=== PATIENT | male | born 1940 | race Caucasian/White ===

== ENCOUNTER 2016-12-19 10:53 | Day surgery (SDC) | payer MEDICARE ==
[~2016-12-19] VITALS: Ht 185.4 cm; Wt 88.5 kg
[~2016-12-19 10:53] MED LIST: AMLO10TA3 PO; ASPI-973 PO; ATOR20TA PO; ISOS30TA4 PO; LISI40TA PO; Lactated Ringer's 1,000 ML IV ONE; Lactated Ringer's 1,000 ML IV SCH; MetoCLOpramide 5 mg/mL 2 mL Inj IVPUSH PRN; OMEG500C PO; Ondansetron 2 mg/mL 2 mL Inj IVPUSH PRN; TICA90TA PO
[2016-12-19] MEDS ORDERED: Propofol 10,000 mCg/mL 20 mL Inj ONE (10:54)
[2016-12-19] MEDS ORDERED: FERR159T2 PO (12:01)
[2016-12-19 12:08] VITALS: BP 117/66; PULSE 50; RESP 15; O2SAT 96
--- NOTE | 2016-12-19 12:59 | PCM.HPANE ---
Patient Data Surgeon Admitting Provider: Attending Provider:Junior Daniels MD Primary Care Physician:Eduardo Taveras DO Other Provider:Patricia Vega Anesthesia Reason for Visit Iron Deficiency Anemia Ht/WT & BMI Height (Feet): 6 Height (Inches): 1 Weight (Kilograms): 88.45 Body Mass Index 25.00 Allergies Coded Allergies: No Known Drug Allergies (Verified Allergy, Unknown, 12/17/16) Past Anesthesia History Anesthesia History: Denies:: Anesthesia Reactions, Fam Malignant Hypertherm Diabetes History Hx Diabetes?: No MRSA MRSA: No Medications Blood Thinner: Aspirin Last Dose Blood Thinner: Dec 19, 2016 Home Meds Incl Beta Mal: No Reported Medications Ferrous Sulfate, Dried (Iron)159 Mg Tablet.er159 Mg PO 12/19/16 Lisinopril 40 Mg Xszlgy95 Mg PO DAILY 30 Days Ref 0 12/17/16 Isosorbide MN ER 30 Mg Tab.er.24h30 Mg PO DAILY 12/17/16 Ponder-3 Fatty Acids (Fish Oil)500 Mg Capsule.dr500 Mg PO 12/17/16 Ticagrelor (Brilinta)90 Mg Vgjjla98 Mg PO 12/17/16 Atorvastatin (Lipitor)20 Mg Nqagjo39 Mg PO DAILY Ref 0 12/17/16 Aspirin 81 Mg Jhspeo01 Mg PO DAILY Ref 0 12/17/16 Amlodipine 10 Mg Lvyirl99 Mg PO DAILY Ref 0 12/17/16 Last Time Dose Received off brilinta x 4 dd Took lisinopril History History of ENT Problems?: Yes HEENT History: Positive for:: Hearing Problem Denture Type: Full- Upper Full- Lower Teeth Condition: Missing Teeth Hx of Heart Problems?: Yes Cardiovascular History: Positive for:: Hypertension Other History/Comments one coronary stent 06/21. No recent CP Greater than 4 mets; very active Hx of Respiratory Problem?: No Respiratory History: Denies:: Asthma COPD Chest Surgery Cough Dyspnea Emphysema Hemoptysis Oxygen Administration Pneumonia Pulmonary Embolism Tuberculosis Use of C-PAP Machine Use of Inhalers / NEBS Hx Neurologic Problems?: No Neurological History: Denies:: CVA Hx of GI Problems?: No Hx of Problems?: No Hx Musculoskeletal Problems?: No Hx Surgeries?: Yes (RIHNO SURGERY) Hx Any Other Health Problems?: No Hx Diabetes: No Hx Alcohol Use: Yes (OCCASIONALY) Stop/Bang Treated for Sleep Apnea?: No Do You Have a CPAP Machine?: No S-Snoring: Do You Snore Loudly: Yes T-Tired: feel tired, fatigued: No O-Obsered: Observed not breath: No P-Blood Pressure: treated: Yes B- Body Mass Index > 35 kg/m2: No A- Age over 50: Yes N- Neck Large Circumference: No G- Gender Male: Yes RUBEN Total Score: 4 Risk Assessment Category Category 1A: Patient has history of documented sleep apnea, and HAS NOT received any narcotic, sedative or anesthesia administration during this stay. Category 1B: Patient has history of documented sleep apnea, and HAS received any narcotic , sedative or anesthesia administration during this stay Category 2: Patient has SUSPECTED Obstructive Sleep Apnea, and HAS received any narcotic , sedative or anesthesia administration during this stay. Category 3: Patient has SUSPECTED Obstructive Sleep Apnea and HAS NOT received narcotic, sedative or anesthesia administration during this stay. Category 4: Outpatient in Procedural Areas with known sleep apnea or who screen positive for High Risk via the STOP/BANG questionnaire. Exam Exam Vital Signs Vital Signs Date Time Temp Pulse Resp B/P Pulse Ox O2 Delivery O2 Flow Rate FiO2 12/19/16 12:08 50 15 117/66 96 Room Air General Appearance: Alert, Oriented X3 HEENT/AIRWAY: MP 2, Neck Movement (FROM) Lungs: Clear to Auscultation, Clear to Percussion Heart: Exam Unremarkable, Regular Rate/Rhythm Plan Impression Patient chart reviewed, patient interviewed and anesthestic plan with risks, benefits, and alternatives discussed, and informed consent obtained. ASA Physical Status: ASA2 Mod Systemic Disease Anesthetic Plan: MAC Bene/Risks/Altern/Consents: Yes HP Complete Prior to Induction: Yes Temo Anderson MD Dec 19, 2016 12:59
--- NOTE | 2016-12-19 13:42 | PCM.ANEP1 ---
Post Anesthesia PACU Phase 1 Assessment Vital Signs Vital Signs Date Time Temp Pulse Resp B/P Pulse Ox O2 Delivery O2 Flow Rate FiO2 12/19/16 12:08 50 15 117/66 96 Room Air Anesthetic Administered: MAC Level of Alertness: Awake, talking JESUS's with Equal Strength: Yes Pain: No Nausea or Vomiting: No CV Function & Hydration Stable: Yes Airway Device: Oxygen Delivery: Room Air Lungs: Clear to Auscultation, Clear to Percussion PACU Phase 2 Assessment Complications: No Follow up Care: No Patient Instructions Provided: N/A Comments See anesth record for PACU VS. PACU VSS Temo Anderson MD Dec 19, 2016 13:42
[2016-12-19 13:43] VITALS: BP 105/59; PULSE 52; RESP 12; O2SAT 98
[2016-12-19 14:01] VITALS: BP 107/73; PULSE 57; RESP 14; O2SAT 99
--- NOTE | 2016-12-19 15:03 | ENDO ---
[address] [address] ENDOSCOPY PROCEDURE PATIENT: PERCY GAYLE : 1940 MR#: [id number] ADMIT: 12/19/2016 JOB ID: [id number] DATE: 12/19/2016 PROCEDURE: Esophagogastroduodenoscopy. INDICATION: Iron deficiency anemia. The patient's ASA classification, Mallampati score and medications per Dr. Temo Anderson's anesthesia report. INSTRUMENT USED: GIF H 180 J. PROCEDURE DETAILS: After informed consent was obtained, the patient was brought into the GI suite, where he was placed on oxygen via nasal cannula and monitored with continuous pulse oximeter, telemetry and blood pressure monitoring. A time-out was performed. Then, he was placed in the left lateral decubitus position and medications were administered for sedation. A bite block was placed. The standard EGD scope was inserted through the bite block and advanced under direct visualization to the second portion of the duodenum without difficulty. FINDINGS: 1. Normal appearing duodenal bulb, first and second portion. Multiple random biopsies were obtained. 2. Normal-appearing pylorus, antrum and gastric body. 3. Retroflexed views in the gastric body revealed a small hiatal hernia. At the mouth of the hiatal hernia, there was what appeared to be an ulcer that was clean based and not actively bleeding. The ulcer measured approximately 2-3 mm in size. Mucosa surrounding it was erythematous. Multiple random biopsies were obtained. 4. The GE junction was at approximately 40 cm and appeared regular. 5. Normal appearing esophagus. The hiatal hernia appeared to be a sliding-type hiatal hernia. As the scope was withdrawn back into the esophagus, we did not appreciate the hernia. IMPRESSION: Ulcer in the cardia. I suspect this may be Eliazar erosion. RECOMMENDATIONS: 1. Await biopsy results. PPI daily. 2. Proceed to colonoscopy. COMPLICATIONS: None. ESTIMATED BLOOD LOSS: Less than 5 mL. PROCEDURE PERFORMED: Colonoscopy. INDICATION: Iron deficiency anemia. Please see above for ASA classification, Mallampati score and medications. INSTRUMENT USED: PCF H 180 AL PREPARATION QUALITY: Was good. PROCEDURE DETAILS: After completion of the EGD examination, the patient was turned and a digital rectal examination was performed which was unremarkable. The colonoscope was then inserted into the rectum and advanced under direct visualization to the cecum, which was identified by the presence of the ileocecal valve and appendiceal orifice. Once the cecum was reached, the colonoscope was withdrawn back into the rectum and the mucosa and lumen were examined. In the rectum, retroflexion was performed. Following retroflexion, remaining air in the rectum was suctioned, and the procedure was completed. FINDINGS: 1. In the cecum there was an approximately 5-6 mm sessile polyp that was removed with a cold snare. 2. In the ascending colon, there was an approximately 7 mm sessile polyp that was removed with a hot snare. 3. Just distal to this, there was an approximately 4-5 mm polyp that was removed with a combination of a hot snare and cold biopsy forceps. 4. In the sigmoid colon, there were two diminutive polyps removed with cold biopsy forceps. IMPRESSION: 1. Cecal polyp. 2. Two ascending colon polyps. 3. Two sigmoid polyps. RECOMMENDATIONS: 1. Avoid nonsteroidal anti-inflammatory drugs and anticoagulants for 72 hours. 2. Repeat colonoscopy in three years. 3. Followup in GI clinic. COMPLICATIONS: None. ESTIMATED BLOOD LOSS: Less than 5 mL.
--- NOTE | 2016-12-25 12:31 | PATH ---
SURGICAL PATHOLOGY Attending Physician:Donta Najera CASE STATUS: Signed Out PATIENT NAME: PRECY GAYLE PID: [id number] : 1940 DATE COLLECTED:12/19/2016 00:00 SPECIMEN: 1: Duodenum, Biopsy 2: Gastric, Biopsy 3: Colon, Polyp 4: Colon, Polyp 5: Colon, Polyp CLINICAL HISTORY: 1). DUODENAL BIOPSY 2). CARDIA ULCER BIOPSY (RULE OUT H.PYLORI) 3). CECAL POLYP X1 4). ASCENDING POLYPS X2 5). SIGMOID POLYP X1 FINAL DIAGNOSIS: 1.DUODENAL BIOPSY: - DUODENAL MUCOSA WITH NO DIAGNOSTIC ABNORMALITY. - Negative for active inflammation, features of sprue, dysplasia or malignancy. 2.CARDIA ULCER BIOPSY: - GASTRIC ANTRAL-TYPE MUCOSA WITH MILD CHRONIC AND FOCALLY ACTIVE GASTRITIS. - EDEMA OF LAMINA PROPRIA WITH EXTRAVASATED RED BLOOD CELLS AND REACTIVE CHANGES. - Negative for Helicobacter pylori by immunohistochemistry. - Negative for intestinal metaplasia. - Negative for dysplasia and malignancy. 3.CECAL POLYP, BIOPSY: - TUBULAR ADENOMA IN 2 OF 2 FRAGMENTS. 4.ASCENDING POLYPS, BIOPSY: - TUBULAR ADENOMA IN 6 OF 8 FRAGMENTS - TWO FRAGMENTS OF COLONIC MUCOSA WITH NO DIAGNOSTIC ABNORMALITY, NEGATIVE FOR DYSPLASIA AND MALIGNANCY. 5.SIGMOID POLYP, BIOPSY: - SERRATED POLYP FAVOR HYPERPLASTIC POLYP IN 2 OF 2 FRAGMENTS. ICD10 D12.6 GROSS DESCRIPTION: The specimen is received in five formalin filled containers labeled with the patient's name. 1). The specimen is labeled "duodenum" and consists of multiple portions of tissue which aggregate to 0.3 x 0.3 x 0.2 CM. The specimen is entirely submitted in cassette 1A. 2). The specimen is labeled "cardia" and consists of 2 portions of tissue which aggregate to 0.2 x 0.2 x 0.2 CM. The specimen is entirely submitted in cassette 2A. 3). The specimen is labeled "cecal polyp" and consists of 2 portions of tissue which aggregate to 0.2 x 0.2 x 0.2 CM. The specimen is entirely submitted in cassettes 3A 4). The specimen is labeled "ascending polyps" and consists of multiple portions of tissue which aggregate to 0.5 x 0.5 x 0.4 CM. The specimen is entirely submitted in cassette 4A. 5). The specimen is labeled "sigmoid polyp" and consists of 2 portions of tissue which aggregate to 0.3 x 0.3 x 0.2 CM. The specimen is entirely submitted in cassette 5A. 12/20/2016[place] MICRO DESCRIPTION: An immunohistochemical stain was performed to evaluate for Helicobacter pylori microorganisms. The control stain showed appropriate reactivity. This test was developed and its performance characteristics determined by [facility]. It has not been cleared or approved by the U. [place]. Food and Drug Administration. The FDA has determined that such clearance or approval is not necessary. This test is used for clinical purposes. It should not be regarded as investigational or for research. ICD-9 CODES: CPT CODES: 1: 88688 2: 07763, 03693 3: 68420 4: 67356 5: 78415 Electronically Signed Out Buddy Cowart MD [facility] [address], [place] [address] Technical component performed at [facility], [facility] [address], [place], [address]
== END 2016-12-19 23:59 | disposition home or self-care (01) ==
LOC: END 10:53
PROVIDERS: ATTEND Internal Medicine Gastroenterology
DX: D50.9 Iron deficiency anemia, unspecified (principal); D12.0 Benign neoplasm of cecum; D12.2 Benign neoplasm of ascending colon; K63.5 Polyp of colon; K29.50 Unspecified chronic gastritis without bleeding; K22.10 Ulcer of esophagus without bleeding; K44.9 Diaphragmatic hernia without obstruction or gangrene; I25.10 Atherosclerotic heart disease of native coronary artery without angina pectoris; Z95.5 Presence of coronary angioplasty implant and graft; Z79.82 Long term (current) use of aspirin
CPT/HCPCS: 43239; 45380; 45385; J2704; J7120